=== PATIENT | male | born 1950 | race Caucasian/White ===

== ENCOUNTER 2020-12-21 15:42 | Inpatient (IN) | payer OTHER, SELFPAY ==
[~2020-12-21] VITALS: Ht 177.8 cm; Wt 70.8 kg
--- NOTE | 2020-12-21 05:00 | NUR ---
patient sleeping quietly at this time.
[2020-12-21 15:42] VITALS: BP 90/48
[~2020-12-21 15:42] MED LIST: AMLO5TAB PO; CARV25TA2 PO; FURO-570 PO; GLIP5TER PO; SIMV20TA1 PO
--- NOTE | 2020-12-21 15:42 | NUR ---
UNABLE TO OBTAIN O2 SATURATION ON PT AT THIS TIME, DR GARCIAS AWARE AT BEDSIDE OF PT
--- NOTE | 2020-12-21 15:45 | NUR ---
NS 500mL bolus started per MD order.
[2020-12-21] MEDS ORDERED: ATROPINE 0.4 MG/ML VIAL IVP ONE (15:55)
--- NOTE | 2020-12-21 15:55 | NUR ---
Established IV to right EJ 18G and right hand 20G, good blood return. Blood cultures and labs drawn, given to electrical laboratory technician.
--- NOTE | 2020-12-21 15:59 | NUR ---
Pt HR 44, per Dr. Goetz atropine 0.4mg IVP.
[2020-12-21] MEDS ORDERED: NACL 0.9% 500 ML IV ONE (16:00)
--- NOTE | 2020-12-21 16:01 | NUR ---
Neida carroll in [facility] - 12/21/20 at 1705 by [email or web address] NS bolus started at this time.
[2020-12-21] MEDS ORDERED: CALCIUM GLUCONATE 10% 1000 MG/10 ML VIAL ONE (16:05)
[2020-12-21] MEDS ORDERED: CALCIUM GLUCONATE 10% 1000 MG/10 ML VIAL IVP ONE (16:10)
[2020-12-21 16:14] LABS: BASOPHILS % (AUTO) 0.9 % (0.0-2.0); EOSINOPHILS # (AUTO) 0.1 K/uL (0-0.4); EOSINOPHILS % (AUTO) 1.4 % (0.0-4.0); HEMOGLOBIN 10.4 g/dL (12.0-18.0); LYMPHOCYTES # (AUTO) 0.5 K/uL (2.0-11.5); LYMPHOCYTES % (AUTO) 13.1 % (20.5-51.1); MEAN CORPUSCULAR HEMOGLOBIN 31 pg (27-31); MEAN CORPUSCULAR HGB CONC 32 g/dL (33-37); MEAN CORPUSCULAR VOLUME 96.5 fL (80-94); MONOCYTES # (AUTO) 0.5 K/uL (0.8-1.0); MONOCYTES % (AUTO) 13.8 % (1.7-9.3); NEUTROPHILS # (AUTO) 2.7 K/uL (1.8-7.7); NEUTROPHILS % (AUTO) 70.8 % (42.2-75.2); PLATELET COUNT (AUTO) 149 K/uL (140-450); RED BLOOD CELL COUNT(AUTO) 3.32 MIL/uL (4.20-6.10); RED CELL DISTRIBUTION WIDTH 17.5 % (11.6-13.7); WHITE BLOOD COUNT (AUTO) 3.8 K/uL (4.8-10.8)
--- NOTE | 2020-12-21 16:17 | NUR ---
Per Dr. Goetz stop IV fluids at this time.
--- NOTE | 2020-12-21 16:18 | NUR ---
RT at pt bedside for ABGs.
[2020-12-21] MEDS ORDERED: fentaNYL citrate 0.05 MG/ML VIAL ONE (16:19)
--- NOTE | 2020-12-21 16:19 | NUR ---
Pt c/o 09/07 pain, per MD order gave fentanyl 50mg IVP.
[2020-12-21] MEDS ORDERED: fentaNYL citrate 0.05 MG/ML VIAL IVP ONE (16:20)
--- NOTE | 2020-12-21 16:28 | NUR ---
emergency medical tech at bedside for XR.
--- NOTE | 2020-12-21 16:29 | NUR ---
70 Y/O MALE PT BIBA FOR DIZZINESS, HYPOTENSION, BRADYCARDIA X YESTERDAY. PT PLACED ON 3L NC SPO2 AT 91%. LUNGS ARE DIMINISHED ARE AT THE BASES WITH SOME TACHYPNEA NOTED RR 25. PT STATES PAIN 8/10 TO CHEST X1DAY. PMH - HTN, DM2, ESRD (LEFT ARM SHUNT), STENT PLACEMENT NKA
[2020-12-21 16:31] LABS: ALBUMIN 2.8 g/dL (3.4-5.0); ANION GAP 12.8 (8-16); ASPARTATE AMINOTRANSFERASE 20 U/L (15-37); CHLORIDE 101 mmol/L (98-107); GLUCOSE 194 mg/dL (74-106); POTASSIUM 3.8 mmol/L (3.5-5.1); SODIUM SERUM 141 mmol/L (136-145); TOTAL BILIRUBIN 1.5 mg/dL (0.0-1.0); UREA NITROGEN, BLOOD 41 mg/dL (7-18)
[2020-12-21 16:32] LABS: PROTHROMBIN TIME 11.2 secs (10.8-13.4)
[2020-12-21 16:40] LABS: CREATININE 4.6 mg/dL (0.6-1.3)
--- NOTE | 2020-12-21 16:47 | NUR ---
EMT at bedside setting up central line per MD order.
--- NOTE | 2020-12-21 17:01 | NUR ---
Dr. Goetz at pt bedside for central line procedure.
--- NOTE | 2020-12-21 17:13 | NUR ---
URSULA SAMPLE COLLECTED AND WALKED TO LAB
[2020-12-21] MEDS ORDERED: EPINEPHrine 1:1000 (1 mg/mL) 6 MG in DEXTROSE 5% 250 ML IV PRN (17:35)
--- NOTE | 2020-12-21 17:59 | NUR ---
pt covid + result to rn and provider.
[2020-12-21] MEDS ORDERED: EPINEPHrine PFS 0.1 MG/ML SYR IVP ONE (18:04)
[2020-12-21] MEDS ORDERED: EPINEPHrine 1:1000 - 1 MG/ML AMP ONE ×2 (18:05→18:07)
--- NOTE | 2020-12-21 18:11 | NUR ---
Pt hand pulling at central femoral site, blood noted, pressure applied. Dr. Goetz made aware.
--- NOTE | 2020-12-21 18:22 | NUR ---
Dr. Goetz at pt bedside for assessment. Per MD order to use sterile gloves and sterile gauze to change to new transparent dressing.
--- NOTE | 2020-12-21 18:32 | NUR ---
Pt repositioned in bed ALOC NRB removed on assessment, re-applied SPO2 at 93% with NRB 15L. Dr. Goetz made aware. Bilateral soft restraints placed for pt safety per MD order.
[2020-12-21] MEDS ORDERED: ACETAMINOPHEN 325 MG TAB PO PRN (18:45)
[2020-12-21] MEDS ORDERED: METOCLOPRAMIDE 10 MG/2 ML INJ VIAL IVP PRN (18:45)
--- NOTE | 2020-12-21 18:45 | NUR ---
water and fire technician at pt bedside.
[2020-12-21] MEDS ORDERED: DEXAMETHASONE 4 MG TAB PO ONE ×2 (18:50)
--- NOTE | 2020-12-21 19:23 | NUR ---
Report given to JAZMYNE Reyes. Transfer of care at this time.
--- NOTE | 2020-12-21 19:23 | NUR ---
REPORT RECEIVED FROM TERI SAMANO FOR CONTINUITY OF CARE
--- NOTE | 2020-12-21 19:46 | NUR ---
# 16 FR Rey catheter with 10 ml utilizing sterile technique. Immediate return of 10 ml YELLOW urine noted. Bedside drainage bag placed below level of bladder. Pt tolerated procedure WELL.
--- NOTE | 2020-12-21 20:00 | NUR ---
PER DR DIETER Buckner/Silvestre MARKHAM. RASHI D/C AT THIS TIME.
--- NOTE | 2020-12-21 20:05 | NUR ---
Patient will be admitted to care of DR ZEPEDA. Admited to ICU. Will go to room ICU3. Belongings list completed. Report to SOHA SAMANO.
--- NOTE | 2020-12-21 20:15 | NUR ---
RECEIVED THIS PATIENT FROM ED ACCOMPANIED BY DESIGN STUDIO CONSULTANT PATIENT IS AWAKE VERY ANXIOUS WITH PERIOD OF AGITATION,PATIENT IS PORTUGUESE SPEAKING ONLY ,PATIENT IS IN ATRIAL FIB AND ON EPINEPHRINE DRIP AT 3 MCG/MIN.PATIENT IS ADIALYSISPATIENT AND HAS FISTULA ON ON LEFT UPPER ARM WITH GOOD THRILL AND BRUIT.PATIENT EPINEPHRINE DRIP IS INFUSING THRU HIS TRIPKE LUMEN CATHETER,PATIENT ALSO Hs right jugular exter heplock in place on right jugular.patient is on 100% non rebreather ,ans saturating only 68% skin is cold and clammy.patient is extremely restless and trying to remove mask soft wrist restraint applied.patient continue to desat and he gets very tachypneic.
[2020-12-21 20:30] VITALS: BP 136/64
--- NOTE | 2020-12-21 21:00 | NUR ---
PHONE CALL TO PTS TONEY FOR THE HEALTH HISTORY OF PT, TONEY SPEAKS ONLY NIGERIEN; SHE GAVE PHONE NUMBER OF SONRENZO [phone]; PER PTS , HER SON SPEAKS ITALIAN , OK TO GIVE INFORMATION TO SON, SOHA RN AWARE
--- NOTE | 2020-12-21 21:15 | NUR ---
notified dr n[facility] patient admission.dr nolan aordered abg,respiratory at bedside and reposition pulse oximetry and this time saturation is in=mprove .o2 saturation fluctuates and patient is vey uncooperative, medicated with 1mg of stivanas oer order of dr nolan. suri rt on duty called dr nolan and made him aware of patient condition. dr nolan spoke to me and ordered to dc dexamethazone and use dopamin instead of epinephrine Addendum: 12/22/20 at 0705 by Agency 07 JAZMYNE RN correction above spelling on ativan
[2020-12-21] MEDS ORDERED: LORazepam 2 MG/ML VIAL IVP SCH (21:20)
[2020-12-21] MEDS ORDERED: LORazepam 2 MG/ML VIAL ONE (21:25)
[2020-12-21 22:00] VITALS: BP 128/48
--- NOTE | 2020-12-21 22:30 | NUR ---
paTient quiet at this time.
[2020-12-22] VITALS (23 sets, daily range): BP systolic 100–162; BP diastolic 47–91
--- NOTE | 2020-12-22 | NUR ---
patient family gave consent for patient hemodialysis. patient now on dopamine at 5 mcg/kg/miv
[2020-12-22] MEDS: LORazepam 2 MG/ML VIAL IVP PRN ×4 (04:23→22:07)
[2020-12-22 06:19] LABS: BASOPHILS % (AUTO) 0.8 % (0.0-2.0); EOSINOPHILS % (AUTO) 0.4 % (0.0-4.0); HEMATOCRIT 33.4 % (36-52); HEMOGLOBIN 10.7 g/dL (12.0-18.0); LYMPHOCYTES # (AUTO) 0.4 K/uL (2.0-11.5); LYMPHOCYTES % (AUTO) 7.6 % (20.5-51.1); MEAN CORPUSCULAR HEMOGLOBIN 31 pg (27-31); MEAN CORPUSCULAR HGB CONC 32 g/dL (33-37); MEAN CORPUSCULAR VOLUME 96.9 fL (80-94); MONOCYTES # (AUTO) 0.5 K/uL (0.8-1.0); MONOCYTES % (AUTO) 9.7 % (1.7-9.3); NEUTROPHILS # (AUTO) 4.1 K/uL (1.8-7.7); NEUTROPHILS % (AUTO) 81.5 % (42.2-75.2); PLATELET COUNT (AUTO) 148 K/uL (140-450); RED BLOOD CELL COUNT(AUTO) 3.45 MIL/uL (4.20-6.10); RED CELL DISTRIBUTION WIDTH 17.5 % (11.6-13.7)
[2020-12-22 07:02] LABS: ALBUMIN 3.1 g/dL (3.4-5.0); ASPARTATE AMINOTRANSFERASE 30 U/L (15-37); CHLORIDE 101 mmol/L (98-107); GLUCOSE 124 mg/dL (74-106); MAGNESIUM 2.1 mg/dL (1.8-2.4); POTASSIUM 3.9 mmol/L (3.5-5.1); SODIUM SERUM 143 mmol/L (136-145); TOTAL BILIRUBIN 1.6 mg/dL (0.0-1.0); UREA NITROGEN, BLOOD 48 mg/dL (7-18)
[2020-12-22] MEDS: DOPamine 400 MG/D5W PREMIX 250 ML IV PRN (07:30)
--- NOTE | 2020-12-22 07:35 | NUR ---
RECEIVED REPORT FROM GEOSCIENCE PROFESSOR NURSE. PATIENT IN CRITICAL CONDITION.
[2020-12-22 08:18] LABS: CREATININE 5.1 mg/dL (0.6-1.3)
[2020-12-22 08:19] LABS: CHOL/HDL RATIO 1.8 (1-4.5); HDL CHOLESTEROL 57 mg/dL (40-60); LDL (CALC) 34 mg/dL (60-100); TRIGLYCERIDES 46 mg/dL (30-150)
[2020-12-22 08:39] LABS: ANION GAP 20.6 (8-16); CARBON DIOXIDE 25.3 mmol/L (21-32)
--- NOTE | 2020-12-22 09:35 | NUR ---
DR SANCHES PAGED VIA OralWiseING SERVICE
--- NOTE | 2020-12-22 09:43 | NUR ---
PATIENT HAS BEEN SCREENED AND CATEGORIZED HIGH NUTRITION RISK. PATIENT WILL BE SEEN WITHIN 1-2 DAYS OF ADMISSION. 12/22/20 - 12/23/20 GANGA FREEMAN MBA, RD
[2020-12-22] MEDS: ENOXAPARIN 30 MG/0.3 ML SYR SUBQ SCH (10:00)
--- NOTE | 2020-12-22 10:01 | NUR ---
CANCEL CT ANGIO CHEST PER DR SANTOS
--- NOTE | 2020-12-22 11:21 | NUR ---
NO RETURN CALL BACK FROM DR SANCHES, PAGED AGAIN VIA PAGING SERVICE
--- NOTE | 2020-12-22 11:42 | NUR ---
DR SANCHES CALLED BACK, NOTIFIED OF CONSULTATION FROM DR SANTOS, PT CONDITION REPORTED.
[2020-12-22] MEDS: BLOOD GLUCOSE MONITORING 1 DEV DEV FS SCH ×3 (12:08→21:00)
--- NOTE | 2020-12-22 12:08 | NUR ---
PATIENT VOMITED X1 ABOUT 5 ML, BROWN EMESIS AND IS AGITATED. METOCLOPRAMIDE AND ATIVAN GIVEN AT THIS TIME. WILL CONTINUE TO MONITOR.
--- NOTE | 2020-12-22 14:14 | NUR ---
SOCIAL WORK NOTE: Patient's Orientation Unable To Assess Information Provided By RENZO CASANOVA - SON Comments SW WAS UNABLE TO MEET PATIENT AT BEDSIDE. SW COMPLETED ASSESSMENT WITH PATIENT'S SON. Instructional Media Services Technician, Realtionship and Phone Number TONEY CASANOVA [phone] RENZO CASANOVA SON [phone] Healthcare Power of Statistical Programmer No Does Patient Have a POLST No Identifying Problems No Social Work Triggers Is A Social Work Consult Needed No Mandate Report Filed No Explanation Of Identifying Problems PATIENT IS A 70-YEAR-OLD MALE ADMITTED FOR COMPLETE HEART BLOCK. PATIENT HAS PMHX OF ESRD AND CAD. Admitted From Home Pre-Admission Level Of Functioning Status Assist With ADL Level Of Functioning Comment PER SON, PATIENT REQUIRES ASSISTANCE WITH ALL ADLS. Prior Resources/Services Used In Last 12 Months No Prior Resources Used Prior DME Wheelchair Dialysis Hemodialysis Name And Phone Number of Dialysis Facility [facility] ESRD Outpatient Days [facility] Comments SON STATED THAT HE IS UNAWARE OF CHAIR TIME. Living Situation Apartment Lives With Family Patient Had Caregiver No Home Support No Caregiver Issues Financial Issues No Known Financial Issue Referral To The Financial Counselor Needed No Factors/Needs No D/C Needs Identified Pt/Rep Participated In Discharge Plan Yes Patient/Family Agress With Discharge Plan Yes Discharge Plan Comments TENTATIVE DISCHARGE PLAN IS FOR PATIENT TO RETURN HOME. DC Plan Status Initiated
[2020-12-22] MEDS: DEXAMETHASONE 4 MG/ML VIAL IVP SCH (17:00)
--- NOTE | 2020-12-22 17:00 | NUR ---
HD NURSE AT BEDSIDE TO START DIALYSIS. WILL CONTINUE TO MONITOR .
--- NOTE | 2020-12-22 18:31 | NUR ---
HD COMPLETED, 2 L OUT. WILL CONTINUE TO MONITOR.
--- NOTE | 2020-12-22 19:26 | NUR ---
GAVE REPORT TO OPERATING ROOM TECHNOLOGIST NURSE. PATIENT REMAINS IN CRITICAL CONDITION.
--- NOTE | 2020-12-22 19:30 | NUR ---
RECEIVED REPORT FROM RUDY,PATIENT IS AWAKE SLIGHTLY RESTLESS AT THIS TIME HE DOENT FOLLOW COMMANPATIENT IS MOVING ALL EXTREMITIES WELL PATIENT IS ON SOFT WRIST RESTRAINT TO PREVENT HIM FROM PULLING LINES ESPECIALLY HIS TRIPLE LUMEN ON RIGJHT GROIN.PATIENT IS ON DOPAMINE AT 2 MCG/MIN BUT HE IS GING PREM AGAIN SO DOPAMINE IS INCREASED TO 5 MCG/KG/MINPAIENT HAS FIRTULA ON LEFT UPPER ARM WITH GOOD BRUIT AND THRILL.PATIENT IS ANURIC,
--- NOTE | 2020-12-22 20:30 | NUR ---
MEDICATED WITH ATIVAN 1 MG IVP FOR AGITATION AND ANXIETY.
--- NOTE | 2020-12-22 21:00 | NUR ---
PATIENT IS BEING TRANSFUSED WITH CONVALESCENT PLASMANO UNTOWARD REACTION DETECTED AT THIS TIME.
--- NOTE | 2020-12-22 22:00 | NUR ---
PATIENT QUIET AT THIS TIME DOPAMUNE KEPT AT 5 MCG/KG/MIN,PATIENT REMAIN ATRIAL FIB CONTROLLED RATE ACCUCHECK IS 101 NO INSULIN COVERAGE REQUIRED.PATIENT ISTILL REQUIRE SOFT WRIST RESTRAINT
[2020-12-23] VITALS (20 sets, daily range): BP systolic 93–139; BP diastolic 47–91
[2020-12-23] MEDS: DOPamine 400 MG/D5W PREMIX 250 ML IV PRN (01:43)
--- NOTE | 2020-12-23 02:30 | NUR ---
RESTLESS AGAIN PATIENT WAS ABLE TO PUT HIS LEFT LEG OVER SIDERAILS,PATIENT IS RESTLESS MEDICATED WITH ATIVAN 1 MG IV
[2020-12-23] MEDS: LORazepam 2 MG/ML VIAL IVP PRN ×2 (02:34→09:10)
[2020-12-23 06:35] LABS: BASOPHILS % (AUTO) 0.1 % (0.0-2.0); HEMATOCRIT 33.7 % (36-52); HEMOGLOBIN 10.8 g/dL (12.0-18.0); LYMPHOCYTES # (AUTO) 0.2 K/uL (2.0-11.5); LYMPHOCYTES % (AUTO) 3.2 % (20.5-51.1); MEAN CORPUSCULAR HEMOGLOBIN 31 pg (27-31); MEAN CORPUSCULAR HGB CONC 32 g/dL (33-37); MEAN CORPUSCULAR VOLUME 97.5 fL (80-94); MONOCYTES # (AUTO) 0.3 K/uL (0.8-1.0); MONOCYTES % (AUTO) 4.8 % (1.7-9.3); NEUTROPHILS # (AUTO) 6.5 K/uL (1.8-7.7); NEUTROPHILS % (AUTO) 91.9 % (42.2-75.2); PLATELET COUNT (AUTO) 155 K/uL (140-450); RED BLOOD CELL COUNT(AUTO) 3.46 MIL/uL (4.20-6.10); RED CELL DISTRIBUTION WIDTH 18.1 % (11.6-13.7)
[2020-12-23 07:09] LABS: ANION GAP 18.3 (8-16); CARBON DIOXIDE 28.7 mmol/L (21-32); CHLORIDE 99 mmol/L (98-107); GLUCOSE 142 mg/dL (74-106); SODIUM SERUM 142 mmol/L (136-145); UREA NITROGEN, BLOOD 42 mg/dL (7-18)
[2020-12-23 07:11] LABS: CREATININE 4.3 mg/dL (0.6-1.3); TOTAL BILIRUBIN 2.1 mg/dL (0.0-1.0)
[2020-12-23 07:12] LABS: ASPARTATE AMINOTRANSFERASE 33 U/L (15-37)
--- NOTE | 2020-12-23 07:15 | NUR ---
HANDOFF REPORT RECEIVED FRON STEAM AND GAS TURBINE ASSEMBLER NURSE. PATIENT IS RESTING AND CALM. EYES CLOSED. NO AGITATION NOTED. . DAYRON FISTULA ON LEFT UPPER ARM, PALPABLE BRUIT AND THRILL NOTED. PATIENT IS ANURIC. RIGHT GROIN CENTRAL LINE INTACT AND PATENT. DRESSING IS CLEAN AND INTACT. ON DOPAMINE GTT AT 5 MCG/MIN. ON 10L OXYMIZER. NO SOB NOTED. WILL CONTINUE TO MONITOR.
[2020-12-23] MEDS: BLOOD GLUCOSE MONITORING 1 DEV DEV FS SCH ×4 (08:30→21:00)
[2020-12-23] MEDS: ENOXAPARIN 30 MG/0.3 ML SYR SUBQ SCH (09:07)
[2020-12-23] MEDS: DEXAMETHASONE 4 MG/ML VIAL IVP SCH (09:07)
--- NOTE | 2020-12-23 09:45 | NUR ---
SEEN AND EXAMINED BY DR. SANTOS. PLAN TO DOWNGRADE PT TO TELE. DOPAMINE GTT TITRATED TO 2 MCG/KG/MIN. PLACED PT TO 4 L O2 VIA OXYMIZER. OBTAINED 99% O2 SAT. BILATERAL SOFT WRIST RESTRAINTS KEPT IN PLACE. NO SIGNS OF CYANOSIS NOTED TO DISTAL EXTREMITIES. WILL CONTINUE TO MONITOR.
--- NOTE | 2020-12-23 12:00 | NUR ---
PT IS RESTLESS AND AGITATED. KEPT CODY SOFT WRIST RESTRAINTS IN PLACE. NO SIGNS OF CYANOSIS TO DISTAL UPPER EXTREMITIES. RELEASED MADE Q2H TO CHECK CIRCULATION. WILL CONTINUE TO MONITOR.
--- NOTE | 2020-12-23 13:02 | NUR ---
PT. ADMITTED WITH LOW KASSANDRA SCALE AT RISK, CONTINUE TO FOLLOW PRESSURE INJURY PREVENTION INTERVENTIONS. -TURN AND REPOSITION PATIENT Q 2H -ASSESS AND MONITOR SKIN CONDITION DURING POSITION CHANGE -OFFLOAD BILATERAL HEELS BY PLACING PILLOWS UNDER CALVES AT ALL TIMES, UNLESS OTHERWISE CONTRAINDICATED -PRESSURE REDISTRIBUTION BY PLACING PILLOWS AND OFFLOADING SACRALCOCCYX -KEEP SKIN CLEAN AND DRY AT ALL TIMES.
--- NOTE | 2020-12-23 14:00 | NUR ---
BED BATH GIVEN. BM X1. NO S/S OF RESPIRATORY DISTRESS.
--- NOTE | 2020-12-23 14:22 | NUR ---
12/23/20 RD INITIAL ASSESSMENT COMPLETED PLEASE REFER TO NUTRITION ASSESSMENT UNDER CARE ACTIVITY FOR ESTIMATED NUTRITIONAL NEEDS. 1. CONTINUE NPO 2. RECOMMEND LOW POTASSIUM, CCHO 60 GM CARDIAC DIET TOLERATED 3. RECOMMEND NEPRO BID IF PO INTAKE <75% 4. RD TO FOLLOW-UP 2-3 DAYS, HIGH RISK RAMIREZ HERNÁNDEZ, RD
--- NOTE | 2020-12-23 16:00 | NUR ---
PT IS RESTING AND CALM. NO CHANGE OF CONDITION.
[2020-12-23] MEDS: INSULIN LISPRO SLIDING SCALE 100 UNITS/ML VIAL SUBQ PRN (16:19)
--- NOTE | 2020-12-23 19:15 | NUR ---
HANDOFF REPORT GIVEN TO PIPE RECOVERY SPECIALIST NURSE. POC REVIEWED AND DISCUSSED. PT IS STABLE.
--- NOTE | 2020-12-23 19:30 | NUR ---
RECEIVED REPORT FROM DAY SHIFT PATIENT IS QUIET AND ASLEEP A THIS TIME IN NO ACUTE DISTRESS ON 4 LITERS NASAL CANNULA HE SATURATES 95%,PATIENT IS ON DOPAMINE AT 2 MCG/KG/MIN .DOPAMINE IS INFUSING ON RIGHT FEMORAL TRIPLE LUMEN CATH .PATIENT IS IN ATRIAL FIB CONTROLLED RATE.HEMODIALYSIS ACCESS IS ON LEFT UPPER ARM AND IT HAS GOOD THRILL AND BRUIT.PATIENT IS ANURIC
--- NOTE | 2020-12-23 22:00 | NUR ---
PATIENTIS INTERMITTENTLY RESTLESS AND MOVES AROUND IN BED AND PATIENT STILL REQUIRES SOFT WRIST RESTRAINT.PATIENT IS IN NO ACUTE DISTRESS AT THIS TIME.
[2020-12-24] VITALS (18 sets, daily range): BP systolic 91–164; BP diastolic 41–94
--- NOTE | 2020-12-24 00:30 | NUR ---
RESTLESS HIS LOWER EXTREMITIES ARE OVER SIDERAILS MEDICATED WITH ATIVAN 4 MG IVP.
--- NOTE | 2020-12-24 02:00 | NUR ---
PATIENT IS NOW ASLEEP AND CALMER AND QUIET IN NO ACUTE DISTRESS.
[2020-12-24] MEDS: LORazepam 2 MG/ML VIAL IVP PRN ×3 (02:24→21:01)
[2020-12-24 05:48] LABS: BASOPHILS % (AUTO) 0.1 % (0.0-2.0); HEMATOCRIT 36.9 % (36-52); HEMOGLOBIN 11.6 g/dL (12.0-18.0); LYMPHOCYTES # (AUTO) 0.2 K/uL (2.0-11.5); LYMPHOCYTES % (AUTO) 3.6 % (20.5-51.1); MEAN CORPUSCULAR HEMOGLOBIN 31 pg (27-31); MEAN CORPUSCULAR HGB CONC 31 g/dL (33-37); MEAN CORPUSCULAR VOLUME 99.6 fL (80-94); MONOCYTES # (AUTO) 0.3 K/uL (0.8-1.0); MONOCYTES % (AUTO) 5.2 % (1.7-9.3); NEUTROPHILS # (AUTO) 5.8 K/uL (1.8-7.7); NEUTROPHILS % (AUTO) 91.1 % (42.2-75.2); PLATELET COUNT (AUTO) 187 K/uL (140-450); RED BLOOD CELL COUNT(AUTO) 3.71 MIL/uL (4.20-6.10); RED CELL DISTRIBUTION WIDTH 18.2 % (11.6-13.7); WHITE BLOOD COUNT (AUTO) 6.4 K/uL (4.8-10.8)
[2020-12-24 06:37] LABS: ANION GAP 19.1 (8-16); ASPARTATE AMINOTRANSFERASE 39 U/L (15-37); CARBON DIOXIDE 26.6 mmol/L (21-32); CHLORIDE 98 mmol/L (98-107); GLUCOSE 175 mg/dL (74-106); MAGNESIUM 2.2 mg/dL (1.8-2.4); POTASSIUM 4.7 mmol/L (3.5-5.1); SODIUM SERUM 139 mmol/L (136-145); TOTAL BILIRUBIN 1.7 mg/dL (0.0-1.0)
[2020-12-24 07:14] LABS: UREA NITROGEN, BLOOD 64 mg/dL (7-18)
[2020-12-24 07:15] LABS: CREATININE 5.2 mg/dL (0.6-1.3)
[2020-12-24] MEDS: BLOOD GLUCOSE MONITORING 1 DEV DEV FS SCH ×3 (07:30→16:30)
--- NOTE | 2020-12-24 08:00 | NUR ---
RECEIVED BEDSIDE HANDOFF. UPON ASSESSMENT PT APPEARS RESTLESS AND LETHARGIC,ATTEMPTING TO PULL AT LINES. BREATHING IN 20S ON 4L OXYMIZER MASK RESTRAINTS APPROPRIATE. NO SIGNS OF CMS IMPAIRMENT OR SKIN BREAKDOWN
--- NOTE | 2020-12-24 09:35 | NUR ---
DC BULK FILLER: SPOKE TO GANESH AT [facility] [phone] THEY ARE ABLE TO ACCEPT PATIENT BACK WITH A POSITIVE COVID RESULT. THEY WILL HAVE TO ARRANGE HIS CHAIR TIME Addendum: 12/24/20 at 1104 by Julieta Cortes CM THIS IS A 70 Y/O MALE PATIENT FROM HOME, WHO CAME IN DUE TO SOB AND WEAKNESS. PAST MEDICAL HISTORY INCLUDE CAD S/P CABG, KIDNEY FAILURE ON HD, HTN, DIABETES. INITIAL DIAGNOSIS OF COMPLETE HEART BLOCK, CARDIOGENIC SHOCK. CURRENT LABS WBC 6.4, H/H 11.6/36.9, NA/K 139/4.7, BUN/CREA 64/5.2, D DIMER 2890. COVID POSITIVE. ON O2 AT 4LPM/NC, O2 SAT 96%. ON DECADRON, LOVENOX. ID, CARDIO AND NEPHRO CONSULTS IN PLACE. TENTATIVE DC PLAN BACK TO HOME ONCE STABLE. Addendum: 12/25/20 at 1137 by Julieta Cortes CM RECEIVED AN ORDER FOR HLOC TRANSFER FOR PACEMAKER PLACEMENT. ORDER FAXED TO JIMBO LAGUNAS AT [phone]. DAKSHA SAENZ OF [facility] [phone] MADE AWARE. SHE STATED, SHE SPOKE TO DR. SANTOS WELL. LETTY STATED THAT THEY WILL START WORKING ON IT AND WILL UPDATE ME. CONTACTED PATIENT TONEY NEWBERRY AT [phone], PER TONEY SHE DOES SPEAK [place]. INFORMED HER THAT I WILL BE CALLING HER BACK WITH A JOB PLACEMENT SPECIALIST. CONTACTED LANGUAGE LINE AT [phone], ABLE TO SPEAK TO GRAPHICS PROGRAMMER LETICIA #[id number]. DISCUSSED THE PLAN FOR HLOC TRANSFER WITH PATIENT'S TONEY AND IS IN AGREEMENT. INFORMED HER THAT I WILL CALL HER BACK SOON WE HAVE AN ACCEPTING HOSPITAL. TONEY STATED TO CALL HER SON RENZO CASANOVA AT [phone] BECAUSE HER SON SPEAKS [place] AND IF HE DOES NOT KISS MIXER TO JUST LEAVE A MESSAGE AND HE WILL RELAY THE MESSAGE IMMEDIATELY TO HER. WILL FOLLOW UP. Addendum: 12/25/20 at 1140 by Julieta Cortes CM PRIMARY JAZMYNE NAVARRETE MADE AWARE THAT I AM STILL WORKING ON HLOC TRANSFER. Addendum: 12/25/20 at 1444 by Julieta Cortes CM PER DAKSHA SAENZ OF [facility], THERE NO BEDS STILL. SHE STATED THEY FAXED IT TO: [facility] - NO BEDS [facility] - [place] BEDS [facility] [place] [facility] - NO BEDS PER LETTY, WILL CALL ME ONCE THERE IS AN ACCEPTING HOSPITAL. PROVIDED HER OF THE UNIT'S PHONE NUMBER ONCE BED IS AVAILABLE AFTER HOURS. Addendum: 12/25/20 at 1445 by Julieta Cortes CM CONT: [facility] - NO BEDS Addendum: 12/26/20 at 1120 by Julieta Cortes CM LATE ENTRY: DAKSHA SAENZ OF [facility] [phone] UPDATED OF THE PATIENT'S CONDITION. Addendum: 12/27/20 at 1126 by Julieta Cortes CM DAKSHA MILLER [facility] UPDATED OF THE PATIENT'S CONDITION. TRACKING NUMBER IS [id number].
[2020-12-24] MEDS: DEXAMETHASONE 4 MG/ML VIAL IVP SCH (09:43)
[2020-12-24] MEDS: ENOXAPARIN 30 MG/0.3 ML SYR SUBQ SCH (09:45)
--- NOTE | 2020-12-24 10:00 | NUR ---
PTS EXTREMITIES FEEL WARM AND PERFUSED TO TOUCH, ALTHOUGH PULSE OXIMETER NOT READING WELL. ATTEMPTED BOTH EAR LOBES AND BOTH INDEX FINGERS. WHEN PULSE OX WAVE FORM COMES THROUGH PT SATTING MID 90S ON 4L OXYMIZER MASK. PT APPEARS TO BE BREATHING WITH EASE AND RESTING CALMLY IN SEMI FOWLERS.
--- NOTE | 2020-12-24 12:00 | NUR ---
ABOUT HALF WAYTHROUGH DIALYSIS, PTS PRESSURES DROPPED TO 90S/20S. DOPAMINE INCREASED FROM 5 TO 10
--- NOTE | 2020-12-24 14:00 | NUR ---
DURING DIALYSIS, PT RECEIVED 1L BOLUS WHICH RECOVERED PRESSURES. TITRATED DOPAMINE BACK TO ORIGINAL RATE OF 5. O2 NEEDS INCREASED AROUND 1400. PT APPEARED TO HAVE LABORED BREATHING, BREATHING IN THE HIGH 20S. INCREASED OXYMIZER TO 10L. PT TOLERATING. WILL CONTINUE TO MONITOR.
--- NOTE | 2020-12-24 16:00 | NUR ---
DUE TO RESTLESSNESS, ADMINISTERED 1 MG ATIVAN PRN. WHEN PT APPEARED CALM AND RELAXED, INSERTED NG TUBE PER MD ORDER WITH ASSISTANCE OF OTHER RN. RESTRAINTS STILL APPROPRIATE FOR PT. NO SIGNS CMS IMPAIRMENT OR SKIN BREAKDOWN. NEPRO BEGAN AT TRICKLE AT 1800. TEACHER EMOTIONALLY IMPAIRED RN REPORTED TO INCREASE AT 4 HOUR JOHANNA FROM START.
--- NOTE | 2020-12-24 19:30 | NUR ---
RECEIVED REPORT FROM DAYSMDFT PATIENT IS AWAKE AND APPEARING RESTLESS AND TRASHING IN BED.PATIENT IS IN ATRIAL FIB AND CONTROLLED RATE,O2 AT 8 LITERS OXIMYZER PATIENT ON DOPAMINE AT 5 MCG/KG/MIN INFUSING THRU HIS TRIPLE LUMEN CATETER IN HIS RIGHT FEMORALPATIENT IS ONSOFT WRIST RESTRAINT .NGT IN PLACE AND PATIENT IS ON FEEDING AT 10CC/HR.PATIENT IS TOLERATING FEEDING AT THIOS TIME.
[2020-12-24] MEDS: DOPamine 400 MG/D5W PREMIX 250 ML IV PRN (20:02)
--- NOTE | 2020-12-24 20:50 | NUR ---
DUE TO RESTLESSNESS AND AGITATION PATIENT IS MEDICATED WITH ATIVAN 1 MG IVP.PATIENT IS TRASHING IN BED.
--- NOTE | 2020-12-24 22:00 | NUR ---
PATIENT IS STILL AWAKE AND APPEARS CALMER.CONTINUE ON DOPAMINE AT 5 MCG/KG/MIN.
--- NOTE | 2020-12-24 22:45 | NUR ---
SEEN PATIENT SKILLED NURSING IN THE BED WITH BOTH LOWER EXTREMITIES OVER SIDERAIILS,PATIENT UNFORTUNATELY PULLED IHIS TRIPLE LUMEN CATH ON HIS RIGHT GROIN.MAUAL PRESSURE APPLIED TO HIS RIGHT GROIN.PATIENT BATHE AND COMPLETE LINENS CHANGED.PATIENT W/O ANY HEMATOMA NOTED ON HIS RIGHT GROIN.
--- NOTE | 2020-12-24 23:00 | NUR ---
PERIPHERAL IV STARTED ON HIS RIGHT ARM WITH NO.22 GAUGE.
[2020-12-25] VITALS (23 sets, daily range): BP systolic 89–150; BP diastolic 35–89
--- NOTE | 2020-12-25 02:55 | NUR ---
PATIENT CONTINOUS TO BE IN ATRIAL FIB DOPAMINE IAT 2 MCG/KG/MIN
[2020-12-25 05:34] LABS: BASOPHILS % (AUTO) 0.2 % (0.0-2.0); EOSINOPHILS % (AUTO) 0.4 % (0.0-4.0); HEMATOCRIT 34.4 % (36-52); HEMOGLOBIN 10.6 g/dL (12.0-18.0); LYMPHOCYTES # (AUTO) 0.1 K/uL (2.0-11.5); LYMPHOCYTES % (AUTO) 2.5 % (20.5-51.1); MEAN CORPUSCULAR HEMOGLOBIN 31 pg (27-31); MEAN CORPUSCULAR HGB CONC 31 g/dL (33-37); MEAN CORPUSCULAR VOLUME 99.5 fL (80-94); MONOCYTES # (AUTO) 0.3 K/uL (0.8-1.0); MONOCYTES % (AUTO) 5.9 % (1.7-9.3); NEUTROPHILS # (AUTO) 5.3 K/uL (1.8-7.7); PLATELET COUNT (AUTO) 167 K/uL (140-450); RED BLOOD CELL COUNT(AUTO) 3.46 MIL/uL (4.20-6.10); RED CELL DISTRIBUTION WIDTH 17.7 % (11.6-13.7); WHITE BLOOD COUNT (AUTO) 5.8 K/uL (4.8-10.8)
[2020-12-25] MEDS: BLOOD GLUCOSE MONITORING 1 DEV DEV FS SCH ×4 (07:30→20:37)
--- NOTE | 2020-12-25 07:37 | NUR ---
REPORT GIVEN TO LANDON AT BEDSIDE.
[2020-12-25] MEDS: LORazepam 2 MG/ML VIAL IVP PRN ×2 (08:04→13:11)
--- NOTE | 2020-12-25 08:54 | NUR ---
CALLED PATIENT'S SON RENZO FOR CONSENT OF PICC LINE, NO ANSWER, MESSAGE LEFT TO RETURN CALL.
[2020-12-25] MEDS: DEXAMETHASONE 4 MG/ML VIAL IVP SCH (09:00)
[2020-12-25] MEDS: ENOXAPARIN 30 MG/0.3 ML SYR SUBQ SCH (09:00)
[2020-12-25 09:07] LABS: ALBUMIN 2.6 g/dL (3.4-5.0); ANION GAP 13.5 (8-16); ASPARTATE AMINOTRANSFERASE 38 U/L (15-37); CARBON DIOXIDE 27.7 mmol/L (21-32); CHLORIDE 101 mmol/L (98-107); GLUCOSE 193 mg/dL (74-106); MAGNESIUM 2.5 mg/dL (1.8-2.4); POTASSIUM 4.2 mmol/L (3.5-5.1); SODIUM SERUM 138 mmol/L (136-145); TOTAL BILIRUBIN 1.3 mg/dL (0.0-1.0)
[2020-12-25 09:10] LABS: UREA NITROGEN, BLOOD 67 mg/dL (7-18)
[2020-12-25 09:11] LABS: CREATININE 4.7 mg/dL (0.6-1.3)
--- NOTE | 2020-12-25 10:02 | NUR ---
RECEIVED A CALL FROM PICC LINE JAZMYNE CASTRO, EXPLAINED THAT WE GOT THE ORDER FROM , AWAITING FOR FAMILY CONSENT, SON RENZO CALLED, BUT DID NOT CALL BACK OF YET, WILL FOLLOW UP. OBTAINED HAYDE DIRECT # [phone]. WILL NOTIFY ONCE CONSENT FROM FAMILY OBTAIN. HAYDE WAS AWARE.
--- NOTE | 2020-12-25 10:05 | NUR ---
CALLED PATIENT'S PREMA ZIEGLER ON FACE SHEET, NO ONE ANSWER, UNABLE TO LEAVE MESSAGE. Addendum: 12/25/20 at 1006 by Yasmin Montes De Oca RN *
--- NOTE | 2020-12-25 10:08 | NUR ---
OBTAINED TELEPHONE CONSENT WITH ANOTHER RN FROM [facility] , EXPLAINED TO RENZO PICC ORDER FROM RENZO PARTIDA WAS AWARE AND AGREED TO PICC LINE PLACEMENT.
--- NOTE | 2020-12-25 10:12 | NUR ---
AWAITING TO FOR MD SIGNATURE TO CALL PICC LINE RN.
--- NOTE | 2020-12-25 10:35 | NUR ---
NOTIFIED MATTHEW PICC RN FOR CONSENT COMPLETED, MATTHEW WAS AWARE. PER MATTHEW, THE ETA IS AROUND 1400.
--- NOTE | 2020-12-25 10:59 | NUR ---
RECEIVED IZAIAH ORDER FROM DR SANTOS TO INPUT ORDER FOR SS/SEWING SUPERVISOR TO TRANSFER TO HIGHER LEVEL OF CARE FOR PACEMAKER PLACEMENT. PRIMARY JAZMYNE NAVARRETE MADE AWARE. Addendum: 12/25/20 at 1502 by Ruthie Glez RN RN TRIED TO MONITOR PT BY LOOKING INTO HIS WINDOW EVERY HOUR TO WATCH CLOSELY HIS EPISODE OF CONFUSION AND RESTLESSNESS Addendum: 12/25/20 at 1552 by Ruthie Glez RN RN picc ;line nurse was called to inform them that we had been waiting since 2 pm as told and left message twice that the PICC line needs to be inserted now
[2020-12-25] MEDS: INSULIN LISPRO SLIDING SCALE 100 UNITS/ML VIAL SUBQ PRN (11:36)
[2020-12-26] VITALS (31 sets, daily range): BP systolic 82–154; BP diastolic 16–76
--- NOTE | 2020-12-26 01:00 | NUR ---
AT BEDSIDE PT DESATURATING. PLACED PT ON NON REBREATHER WITH NO IMPROVEMENT. PT LOOKS ALTERED. ER DOCTOR DEMETRA WAS NOTIFIED. AT APPROXIMATELY 12/25/20 2340 PT WAS SUCCESSFULLY INTUBATED. COLOR CHANGE ON CO2 DETECTOR. PT IS INTUBATED WITH ETT SIZE 8.0 AND WITH BITTING BLOCK ANCHOR-FAST 22 cm @ GUM. PLACED PT ON VENT SETTINGS AC/VC RR 20, VT 450, PEEP 8, FiO2 100% WITH SPO2 100%. AMBU BAG AT BEDSIDE. VENT PLUGGED IN RED OUTLET. ALARMS SETS AND FUNCTIONING. AUSCULTATION REVEAL BILATERAL RALES BREATH SOUNDS. SUCTION SMALL AMOUNT OF PINK TINGE SECRETIONS. XRAY TAKEN AT BEDSIDE. ETT LOOKS VERY CLOSE TO SANDRA. ETT PULL BACK FROM 24 TO 22. ANOTHER XRAY TAKEN AND ETT LOOKS GOOD. WILL WAIT FOR OFFICIAL INTERPRETATION. SPUTUM COLLECTED AND SENT TO LAB. DR. CARPENTER WAS UPDATED POST ABG ORDER OBTAINED.
[2020-12-26] MEDS: PROPOFOL 1000 MG/100 ML PREMIX 100 ML IV PRN ×2 (01:19→18:57)
[2020-12-26] MEDS: DOPamine 400 MG/D5W PREMIX 250 ML IV PRN ×4 (02:24→21:17)
--- NOTE | 2020-12-26 02:55 | NUR ---
ABG RESULTS GIVEN TO DR. CARPENTER. NO CHANGES MADE. WILL TITRATED FiO2 BASED ON SPO2.
--- NOTE | 2020-12-26 04:12 | NUR ---
TITRATED FiO2 TO 50% BASED ON ABG RESULTS. SPO2 95%.PT IS TOLERATING WELL. RN NOTIFIED. WILL CONTINUE TO MONITOR.
[2020-12-26 06:05] LABS: HEMATOCRIT 35.9 % (36-52); HEMOGLOBIN 11.5 g/dL (12.0-18.0); LYMPHOCYTES # (AUTO) 0.1 K/uL (2.0-11.5); LYMPHOCYTES % (AUTO) 4.7 % (20.5-51.1); MEAN CORPUSCULAR HEMOGLOBIN 31 pg (27-31); MEAN CORPUSCULAR HGB CONC 32 g/dL (33-37); MEAN CORPUSCULAR VOLUME 96.9 fL (80-94); MONOCYTES # (AUTO) 0.1 K/uL (0.8-1.0); MONOCYTES % (AUTO) 2.5 % (1.7-9.3); NEUTROPHILS # (AUTO) 2.6 K/uL (1.8-7.7); NEUTROPHILS % (AUTO) 92.8 % (42.2-75.2); PLATELET COUNT (AUTO) 174 K/uL (140-450); RED BLOOD CELL COUNT(AUTO) 3.71 MIL/uL (4.20-6.10); RED CELL DISTRIBUTION WIDTH 17.3 % (11.6-13.7); WHITE BLOOD COUNT (AUTO) 2.8 K/uL (4.8-10.8)
--- NOTE | 2020-12-26 06:35 | NUR ---
PATIENT O2 SAT WAS DROPPING JUST BEFORE MIDNIGHT & WAS SWITCHED TO A NON REBREATHER MASK. HIS HEART RATE & O2 SAT CONTINUED TO DROP & THE ER DOCTOR WAS CALLED. THE PATIENT WAS THEN INTUBATED AT BEDSIDE APPROX. 0040. PATIENT DOPAMINE WAS INCREASED & IS NOW RUNNING AT 5MCG/KG/MIN. PATIENT HAS BEEN NPO SINCE MIDNIGHT & IS CURRENTLY RESTING IN BED WITH TELE IN PROGRESS
[2020-12-26 06:43] LABS: ALBUMIN 2.7 g/dL (3.4-5.0); ANION GAP 17.4 (8-16); ASPARTATE AMINOTRANSFERASE 29 U/L (15-37); CARBON DIOXIDE 25.6 mmol/L (21-32); CHLORIDE 99 mmol/L (98-107); GLUCOSE 212 mg/dL (74-106); MAGNESIUM 2.5 mg/dL (1.8-2.4); SODIUM SERUM 138 mmol/L (136-145); TOTAL BILIRUBIN 1.4 mg/dL (0.0-1.0)
[2020-12-26 07:08] LABS: PROTHROMBIN TIME 12.6 secs (10.8-13.4)
[2020-12-26 07:18] LABS: UREA NITROGEN, BLOOD 82 mg/dL (7-18)
--- NOTE | 2020-12-26 07:23 | NUR ---
RECEIVED HANDOFF FROM ROOM MANAGER RN. PT IS ETT TO VENT, ACVC FIO2 50%, VT 450, R 20, PEEP 5. PT IS SEDATED RASS -3. PT IS A FIB ON THE MONITOR. PT HAS DAYRON PICC AND R EJ 18 G. DOPAMINE IS RUNNING AT 5 MCG/KG/MIN, PROPOFOL AT 5 MCG/KG/MIN. PT IS CURRENTLY IN NPO FOR POSSIBLE PACEMAKER INSERTION BY DR. Marychuy ORTIZ. WILL CONTINUE TO MONITOR. HOB IS 30 DEG IN LOW LOCKED POSITION
[2020-12-26] MEDS: ENOXAPARIN 30 MG/0.3 ML SYR SUBQ SCH (08:03)
--- NOTE | 2020-12-26 08:49 | NUR ---
DR. SANTOS SEEING PT
[2020-12-26] MEDS: BLOOD GLUCOSE MONITORING 1 DEV DEV FS SCH ×4 (09:00→21:28)
[2020-12-26] MEDS: DEXAMETHASONE 4 MG/ML VIAL IVP SCH (09:01)
--- NOTE | 2020-12-26 09:34 | NUR ---
MEDICATIONS ADMINISTERED PER ORDER, LOVENOX HELD DUE TO POSSIBLE PLACEMENT OF TEMP PACEMAKER LATER. CHG BATH AND MARKHAM CARE PROVIDED. TEMPERATURE 95.5 AXILLARY. BS 128, NO INSULIN COVERAGE NEEDED.
--- NOTE | 2020-12-26 11:12 | NUR ---
ZACH HUGGER PLACED ONTO PATIENT DUE TO LOW TEMPERATURE.
--- NOTE | 2020-12-26 11:53 | NUR ---
TEMPERATURE 97.2 TEMPORALLY. BS 72, NO INSULIN COVERAGE NEEDED. VAP ORAL CARE PROVIDED AND PT REPOSITIONED.
[2020-12-26] MEDS ORDERED: MULTIVITAMIN-12 10 ML, THIAMINE 100 MG, MAGNESIUM SULFATE 50% 2,000 MG, FOLIC ACID 1 MG... IV SCH ×5 (12:00)
--- NOTE | 2020-12-26 13:50 | NUR ---
SPOKE TO DR. ORTIZ ON THE PHONE AND PROVIDED HIM WITH UPDATE OF PT'S STATUS. DR. ORITZ IS AWARE OF PT'S FLUCTUATION IN BP.
--- NOTE | 2020-12-26 15:26 | NUR ---
FIRST CRUSHER AT BEDSIDE
--- NOTE | 2020-12-26 15:31 | NUR ---
DR. ORTIZ SEEING PT. PER DR. ORTIZ, PT IS STABLE ENOUGH AT THIS TIME TO POSTPONE TEMPORARY PACEMAKER. WILL CONTINUE TO MONITOR CONDITION UNTIL PERMANENT PACEMAKER CAN BE PLACED.
--- NOTE | 2020-12-26 16:01 | NUR ---
PER CAGE SHIFT MANAGER'S REQUEST, FIO2 INCREASED TO 100% AND DOPAMINE DRIP INCREASED DURING DIALYSIS.
[2020-12-26] MEDS: NOREPINEPHRINE 8 MG in DEXTROSE 5% 250 ML IV PRN ×2 (16:14→22:21)
--- NOTE | 2020-12-26 16:14 | NUR ---
LEVOPHED STARTED DUE TO LOW BP DURING DIALYSIS AND TITRATED PER PROTOCOL, SEE IV SPREADSHEET
--- NOTE | 2020-12-26 16:29 | NUR ---
FORENSIC TOXICOLOGIST SKYLER FORCED TO STOP DIALYSIS DUE TO PT LOW BP 51/29 AND DESATURATION. SKYLER TO TEXT DR. SANCHES.
--- NOTE | 2020-12-26 16:53 | NUR ---
12/26/20 RD INITIAL ASSESSMENT COMPLETED PLEASE REFER TO NUTRITION ASSESSMENT UNDER CARE ACTIVITY FOR ESTIMATED NUTRITIONAL NEEDS. 1. WHEN MEDICALLY APPROPRIATE CONTINUE NEPRO @ 40 ML/HR -PROVIDES 960 ML OF VOLUME, 1728 KCAL AND 78 GM OF PROTEIN. MEETS ADEQUATE NUTRIENT NEEDS 2. FLUSH PER MD 3. RD TO FOLLOW-UP 2-3 DAYS, HIGH RISK RAMIREZ HERNÁNDEZ, RD
--- NOTE | 2020-12-26 17:00 | NUR ---
BS 81, NO INSULIN COVERAGE NEEDED. TEMPERATURE 99.1, ZACH HUGGER TURNED DOWN.
--- NOTE | 2020-12-26 18:00 | NUR ---
PT REPOSITIONED AND CLEANED. HAD SMALL SMEAR BOWEL MOVEMENT.
--- NOTE | 2020-12-26 19:03 | NUR ---
HANDOFF GIVEN TO BELTING INSPECTOR RN FOR CONTINUITY OF CARE
--- NOTE | 2020-12-26 19:44 | NUR ---
RECEIVED PATIENT FROM AM SHIFT. PATIENT WAS SEEN AND ASSESSED. FOUND PT IN SUPINE POSITION. PATIENT IS INTUBATED WITH ETT SIZE 8.0 AND SECURED WITH BITTING BLOCK ANCHOR-FAST AT 22cm. PATIENT IS ON VENT SETTINGS: AC/VC RR 20, VT 450, PEEP 8, FiO2 60% WITH SPO2 OF 93%. AMBU BAG AT BEDSIDE. VENT IS PLUGGED IN RED OUTLET. ALARMS SET AND AUDIBLE TO ENVIRONMENT. SUCTIONED MODERATE AMOUNT OF YELLOW THICK SECRETIONS FROM ETT. AIRWAY IS PATENT. AUSCULTATION REVEALS BILATERAL RALES BREATH SOUNDS ON THE BASES AND CLEAR/DIMINISHED ON THE UPPER LOBES. PATIENT IS IN NO APPARENT RESPIRATORY DISTRESS AT THIS TIME. WILL CONTINUE TO MONITOR PATIENT.
[2020-12-27] VITALS (32 sets, daily range): BP systolic 65–184; BP diastolic 14–142
--- NOTE | 2020-12-27 01:35 | NUR ---
TITRATED FIO2 TO 100% DUE TO PT DESATURATING.
--- NOTE | 2020-12-27 01:50 | NUR ---
DR HORTON UPDATED ON PT CONDITION.
[2020-12-27] MEDS ORDERED: VASOPRESSIN 20 UNITS in NACL 0.9% 250 ML IV SCH (01:55)
--- NOTE | 2020-12-27 02:22 | NUR ---
PER DOCTOR HORTON ORDER. PATIENT WAS PLACED IN PRONE POSITION. PATIENT TOLERATED PROCEDURE WELL. SUCTION MODERATE AMOUNT OF DAVID THICK SECRETIONS FROM ETT. ETT SECURED AND AIRWAY IS PATENT. BILATERAL BREATH SOUNDS ON AUSCULTATION. PATIENT IS IN NO RESPIRATORY DISTRESS AT THIS TIME. RNs AT BEDSIDE. WILL CONTINUE TO MONITOR PATIENT.
--- NOTE | 2020-12-27 02:26 | NUR ---
B/P STABLE NOW. TITRATE PEEP TO 10 cmH20. SPO2 INCREASE TO 96%. PT STILL IN PRONE POSITION.
[2020-12-27] MEDS: NOREPINEPHRINE 8 MG in DEXTROSE 5% 250 ML IV PRN (03:52)
--- NOTE | 2020-12-27 04:39 | NUR ---
LEVOPHED & DOPAMINE BOTH INCREASED TO THE MAX DUE TO PATIENT SBP IN THE 60's AND HIS HEART RATE DROPPING TO THE LOW 50's. TYLENOL WAS ALSO GIVEN AND COOL BATH FOR TEMP. OF 101 AND HIS MOST RECENT TEMP IS 99.1, PATIENT DID VOMIT APPROX. 200cc OF UNDIGESTED CONTENTS DURING REPOSITIONING INTO PRONE POSITION PER MD ORDERS. PATIENT HAS BEEN PRONE SINCE 0200, VITALS ARE CURRENTLY WDL, & PATIENT IS RESTING IN BED WITH TELE IN PROGRESS.
[2020-12-27] MEDS: DOPamine 400 MG/D5W PREMIX 250 ML IV PRN ×3 (06:22→19:02)
[2020-12-27 06:41] LABS: ALBUMIN 2.1 g/dL (3.4-5.0); ANION GAP 27.9 (8-16); ASPARTATE AMINOTRANSFERASE 272 U/L (15-37); CARBON DIOXIDE 17.3 mmol/L (21-32); CHLORIDE 94 mmol/L (98-107); GLUCOSE 166 mg/dL (74-106); POTASSIUM 4.2 mmol/L (3.5-5.1); SODIUM SERUM 135 mmol/L (136-145)
--- NOTE | 2020-12-27 07:16 | NUR ---
RECEIVED HANDOFF FROM PLATFORM INSPECTOR RN. PT IS ETT TO VENT, ACVC FIO2 100%, VT 450, R 20, PEEP 10. PT IS SEDATED RASS -3. PT IS A FIB ON THE MONITOR. PT HAS DAYRON PICC AND R EJ 18 G. DOPAMINE IS RUNNING AT 25 MCG/KG/MIN, PROPOFOL AT 15 MCG/KG/MIN, AND LEVOPHED AT 30 MCG/MIN. ORDER FOR PRN VASOPRESSIN IS ON STANDBY. PT IS CURRENTLY IN PRONE POSITION, SO FEEDING IS HELD AT THIS TIME. WILL CONTINUE TO MONITOR.
[2020-12-27 08:02] LABS: CREATININE 5.7 mg/dL (0.6-1.3); UREA NITROGEN, BLOOD 91 mg/dL (7-18)
[2020-12-27 08:14] LABS: BASOPHILS % (AUTO) 0.2 % (0.0-2.0); EOSINOPHILS % (AUTO) 0.1 % (0.0-4.0); HEMATOCRIT 38.4 % (36-52); LYMPHOCYTES # (AUTO) 0.3 K/uL (2.0-11.5); LYMPHOCYTES % (AUTO) 3.1 % (20.5-51.1); MEAN CORPUSCULAR HEMOGLOBIN 31 pg (27-31); MEAN CORPUSCULAR HGB CONC 31 g/dL (33-37); MEAN CORPUSCULAR VOLUME 100.2 fL (80-94); MONOCYTES # (AUTO) 0.3 K/uL (0.8-1.0); NEUTROPHILS # (AUTO) 7.9 K/uL (1.8-7.7); NEUTROPHILS % (AUTO) 93.6 % (42.2-75.2); RED BLOOD CELL COUNT(AUTO) 3.84 MIL/uL (4.20-6.10); RED CELL DISTRIBUTION WIDTH 18.3 % (11.6-13.7); WHITE BLOOD COUNT (AUTO) 8.4 K/uL (4.8-10.8)
[2020-12-27 08:17] LABS: PLATELET COUNT (AUTO) 86 K/uL (140-450)
[2020-12-27] MEDS: BLOOD GLUCOSE MONITORING 1 DEV DEV FS SCH ×3 (08:30→18:14)
[2020-12-27] MEDS: DEXAMETHASONE 4 MG/ML VIAL IVP SCH (08:31)
[2020-12-27] MEDS: NOREPINEPHRINE 16 MG in DEXTROSE 5% 250 ML IV PRN ×2 (08:45→17:31)
[2020-12-27] MEDS: ENOXAPARIN 30 MG/0.3 ML SYR SUBQ SCH (09:00)
[2020-12-27] MEDS: DEXTROSE 50% 50 ML SYR IVP PRN ×2 (09:10→10:14)
--- NOTE | 2020-12-27 09:10 | NUR ---
MEDICATIONS GIVEN PER ORDER, LOVENOX HELD DUE TO LOW PLT. BS LO ON FIRST FINGER STICK, BS 61 ON SECOND ATTEMPT. D50 ADMINISTERED. TEMPERATURE 97.5 AXILLARY. 200 ML RESIDUAL FROM TUBE FEED, FEED STILL HELD DUE TO PT BEING PRONE POSITIONED. CHG BATH AND VAP ORAL CARE PROVIDED. WILL CONTINUE TO MONITOR
--- NOTE | 2020-12-27 10:13 | NUR ---
RECHECKED BS, STILL 69. SECOND AMP OF D50 ADMINISTERED.
--- NOTE | 2020-12-27 10:16 | NUR ---
POSSIBLE COVID RELATED NECROSIS OF TIP OF LEFT RING FINGER NOTED (MEASURING 3 CM X 2 CM), PICTURES TAKEN AND ADDED TO CHART
--- NOTE | 2020-12-27 10:53 | NUR ---
RECHECKED BS, NOW 96. WILL CONTINUE TO MONITOR
--- NOTE | 2020-12-27 11:22 | NUR ---
FNS CONSULT RECEIVED FOR TUBE FEEDING. RD RECOMMENDATIONS: NEPRO 1.8 @ 90 ML/HR X 8 HOURS WITH PROSOURCE BID DURING SUPINE. FREE WATER FLUSH 340 ML Q12H. THIS WILL PROVIDE 1416 KCAL AND 88 GM OF PROTEIN, MEETING ADEQUATE NUTRIENT NEEDS.
[2020-12-27] MEDS: PROPOFOL 1000 MG/100 ML PREMIX 100 ML IV PRN (12:06)
--- NOTE | 2020-12-27 12:28 | NUR ---
BS 90, NO INSULIN COVERAGE NEEDED. TEMPERATURE 96.0 TEMPORALLY. PT SBP DROPPED DOWN TO 60S, ATTEMPTED REPOSITIONING CUFF BUT WAS UNSUCCESSFUL. TITRATED DOPAMINE TO 35 MCG/KG/MIN
--- NOTE | 2020-12-27 12:38 | NUR ---
MOVED BP CUFF TO LEG, NOW 117/56. WILL CONTINUE TO MONITOR
--- NOTE | 2020-12-27 13:25 | NUR ---
DR. SANTOS AT BEDSIDE SEEING PT
--- NOTE | 2020-12-27 13:52 | NUR ---
PER DR. SANTOS, OKAY TO LEAVE PT IN PRONE POSITION FOR TIME BEING DUE TO PT BEING UNSTABLE (O2 SATURATION 87% ON FIO2 100%, HR LOW 50S, ON DOPAMINE AND LEVOPHED).
--- NOTE | 2020-12-27 14:35 | NUR ---
SPOKE WITH DAUGHTER AND MAMIE AND PROVIDED THEM WITH UPDATE ON PT.
--- NOTE | 2020-12-27 15:38 | NUR ---
PRIMARY RN REPORT CHANGE OF SKIN CONDITION. SKIN ASSESSMENT DONE. PT. ON PRONING POSITION CHIN. OFFLOADING, RIGHT INDEX FINGER ISCHEMIA, DRY GANGRENE. ALL OTHER FINGERS X9 PURPLE COLOR, COLD TO TOUCH PT. IS HYPOXIA WITH PRESSOR. SACRALCOCCYX OLD HEALED SCARS, SKIN INTACT. BILATERAL FEET AND TOEX10 WITH +1 EDEMA, DARK PURPLE, FURTHER DAMAGE TO ISCHEMIA.OFFLOADING, KNEES AND FOOT. POC DISCUSSED WITH PRIMARY RN.
--- NOTE | 2020-12-27 15:39 | NUR ---
PT DESATURATING TO 78%, RT MANUEL AWARE.
--- NOTE | 2020-12-27 17:45 | NUR ---
PT DESATURATING TO LOW 60'S%, PEEP ADJUSTED TO 20kgU4J. HIGHER PEEP TRIED WITH UNSUCCESSFUL AFFECT ON SPO2. B/P AND HR LOW AT THIS TIME. NURSE AWARE OF CHANGES.
--- NOTE | 2020-12-27 18:12 | NUR ---
DR. MUSTAFA PAGED ABOUT PT'S CONDITION AND MAXED ON ALL PRESSORS. MADE FREDRICK MULLER AWARE OF PT'S STATUS WELL.
--- NOTE | 2020-12-27 19:24 | NUR ---
HANDOFF GIVEN TO REVIEW MANAGER RN FOR CONTINUITY OF CARE
--- NOTE | 2020-12-27 19:30 | NUR ---
RECIEVED ENDORSEMENT FROM DAY SHIFT RN, PT A&OX0, PT IN PRONE POSITION, BED LOW AND REVERSE TRENDELENGBERG, PT UNSTABLE, SB AND HYPOTENSIVE ON MONITOR, PT PULSES SHALLOW, SKIN COLD AND DRY TO TOUCH, ETT TO VENT ACVC TV 450 FIO2 100% PEEP 10 RATE 20, NGT TO LEFT NARE CLAMPED, FEEDING HELD D/T PRONE POSITION, DAYRON PICC LINE INFUSING DOPAMINE, LEVOPHED AND VASOPRESSIN, SAFETY MEASURES IN PLACE, WILL CONTINUE WITH CURRENT POC
--- NOTE | 2020-12-27 19:38 | NUR ---
phone call to pts lizette Rosen, pt coding .Roberto said he wants everything to be done.pt still full code at this time
--- NOTE | 2020-12-27 19:42 | NUR ---
PHONE CALL TO RENZO CASANOVA,PTS SON, ER DOCTOR, MIS SWANN SPOKE WITH HIM.PT STILL FULL CODE PER
[2020-12-27] MEDS ORDERED: EPINEPHrine 1:1000 (1 mg/mL) 1 MG in DEXTROSE 5% 250 ML IV PRN (20:45)
[2020-12-27] MEDS ORDERED: EPINEPHrine 1:1000 - 1 MG/ML AMP ONE (20:47)
--- NOTE | 2020-12-27 21:32 | NUR ---
PTS FAMILY CAME TO SEE PT ON THE WINDOW. PT CODING AT THIS TIME BUT FAMILY MEMBER,YOHAN SAID NOT TO CODE ANYMORE; CODE STATUS CHANGED TO DNR.DR GONZALEZ MADE AWARE. DNR PAPERWORK SIGNED BY PTS ,TONEY CASANOVA.
--- NOTE | 2020-12-27 21:41 | NUR ---
PT PRONOUNCED BY ER DOCTOR,DR MIS WALTON, ALSO NOTIFIED DR GONZALEZ. FAMILY WAITING AT THE FRONT LOBBY, MADE AWARE THAT PT .PER FAMILY,THEY DONT HAVE MORTUARY AT THIS TIME, THEY WILL CALL IN AM.
[2020-12-28 09:06] LABS: HEPATITIS A ANTIBODY IGM Negative (Negative); HEPATITIS B SURFACE ANTIBODY Reactive (.)
== END 2020-12-27 21:41 | DRG 208 ==
LOC: MED 15:42 → MIC 18:44
PROVIDERS: ADMIT Hospitalist; ATTEND Hospitalist
PROC: XW13325 Transfusion of Convalescent Plasma (Nonautologous) into Peripheral Vein, Percutaneous Approach, New Technology Group 5 (ICD-10-PCS; 2020-12-22)
PROC: 5A1D70Z Performance of Urinary Filtration, Intermittent, Less than 6 Hours Per Day (ICD-10-PCS; 2020-12-22)
PROC: 5A1D70Z Performance of Urinary Filtration, Intermittent, Less than 6 Hours Per Day (ICD-10-PCS; 2020-12-24)
PROC: 02HV33Z Insertion of Infusion Device into Superior Vena Cava, Percutaneous Approach (ICD-10-PCS; 2020-12-25)
PROC: 5A1945Z Respiratory Ventilation, 24-96 Consecutive Hours (ICD-10-PCS; principal; 2020-12-26)
PROC: 0BH17EZ Insertion of Endotracheal Airway into Trachea, Via Natural or Artificial Opening (ICD-10-PCS; 2020-12-26)
PROC: 5A1D70Z Performance of Urinary Filtration, Intermittent, Less than 6 Hours Per Day (ICD-10-PCS; 2020-12-26)
PROC: 5A12012 Performance of Cardiac Output, Single, Manual (ICD-10-PCS; 2020-12-27)
DX: U07.1 COVID-19 (principal); N18.6 End stage renal disease; J96.01 Acute respiratory failure with hypoxia; I50.43 Acute on chronic combined systolic (congestive) and diastolic (congestive) heart failure; I21.4 Non-ST elevation (NSTEMI) myocardial infarction; G93.41 Metabolic encephalopathy; I44.2 Atrioventricular block, complete; J98.11 Atelectasis; I13.2 Hypertensive heart and chronic kidney disease with heart failure and with stage 5 chronic kidney disease, or end stage renal disease; I46.9 Cardiac arrest, cause unspecified; I95.9 Hypotension, unspecified; I25.10 Atherosclerotic heart disease of native coronary artery without angina pectoris; R57.0 Cardiogenic shock; F41.9 Anxiety disorder, unspecified; E11.22 Type 2 diabetes mellitus with diabetic chronic kidney disease; I49.5 Sick sinus syndrome; E11.51 Type 2 diabetes mellitus with diabetic peripheral angiopathy without gangrene; D63.1 Anemia in chronic kidney disease; E78.5 Hyperlipidemia, unspecified; I49.9 Cardiac arrhythmia, unspecified; Z99.2 Dependence on renal dialysis; Z95.1 Presence of aortocoronary bypass graft; Z95.5 Presence of coronary angioplasty implant and graft; Z79.899 Other long term (current) drug therapy
CPT/HCPCS: 36415; 71045; 74018; 80053; 83036; 83605; 83735; 83880; 84484; 85025; 85379; 85384; 85610; 85730; 86704; 86706; 86708; 86709; 86900; 86901; 87040; 87070; 87081; 87205; 87340; 93005; 94003; 99292; A4649; A9153; J0171; J0461; J0610; J1100; J1265; J1650; J1815; J2060; J2704; J2765; J3010; J3411; J3475; J3490; J7030; J7060; P9017